=== PATIENT | female | born 1955 | race Two or more races ===

== ENCOUNTER 2023-12-08 11:21 | Emergency (ER) | payer MEDICARE, OTHER ==
[~2023-12-08] VITALS: Ht 154.9 cm; Wt 64.0 kg
[2023-12-08 11:49] VITALS: BP 124/83; PULSE 71; RESP 16; O2SAT 94
[2023-12-08] MEDS ORDERED: IBUP1TAB5 PO (14:13)
== END 2023-12-08 14:40 | disposition home or self-care (01) ==
LOC: ER 11:21
DX: S62.664A Nondisplaced fracture of distal phalanx of right ring finger, initial encounter for closed fracture (principal); Z79.1 Long term (current) use of non-steroidal anti-inflammatories (NSAID); W20.8XXA Other cause of strike by thrown, projected or falling object, initial encounter; Y93.89 Activity, other specified; Y92.89 Other specified places as the place of occurrence of the external cause; Y99.8 Other external cause status
CPT/HCPCS: 29130; 73130